=== PATIENT | male | born 1995 | race Two or more races ===

== ENCOUNTER 2022-09-01 00:01 | Emergency (ER) | payer MEDICAID, OTHER ==
[~2022-09-01] VITALS: Ht 172.7 cm; Wt 90.7 kg
--- NOTE | 2022-09-01 00:20 | NUR ---
TO ER BED 3. [id number] C/O RT ANKLE PAIN WHILE WALKING, DENIES LOC, +HEADACHE. PT IS ALERT AND ORIENTED. RR EVEN AND NON LABORED. NO EXTREMITY WEAKNESS. CONNECTED TO MONITOR.
[2022-09-01] MEDS ORDERED: KETOROLAC TROMETHAMINE INJ 60 MG/2 ML VIAL IM ONE ×2 (00:21→00:30)
--- NOTE | 2022-09-01 00:24 | NUR ---
XRAY AT BEDSIDE
[2022-09-01] MEDS ORDERED: KETO10TA2 PO (02:31)
--- NOTE | 2022-09-01 02:57 | NUR ---
Patient discharged to home in stable condition. Written and verbal after care instructions given. Patient verbalizes understanding of instruction.
[2022-09-01 04:12] VITALS: BP 158/57
== END 2022-09-01 04:12 | disposition home or self-care (01) ==
LOC: ER 00:03
DX: S93.401A Sprain of unspecified ligament of right ankle, initial encounter (principal); X50.1XXA Overexertion from prolonged static or awkward postures, initial encounter; Y93.89 Activity, other specified; Y92.89 Other specified places as the place of occurrence of the external cause; Y99.8 Other external cause status
CPT/HCPCS: 99284; 96372; 73610; 73630; J1885

== ENCOUNTER 2022-09-01 06:13 | Emergency (ER) | payer MEDICAID ==
[~2022-09-01] VITALS: Ht 172.7 cm; Wt 90.7 kg
[~2022-09-01 06:13] MED LIST: KETO10TA2 PO
--- NOTE | 2022-09-01 06:45 | NUR ---
COVID ANTIGEN SWAB COLLECTED AND SENT TO LAB
--- NOTE | 2022-09-01 06:45 | NUR ---
URINE COLLECTED AND SENT TO LAB
[2022-09-01 07:05] LABS: BILIRUBIN,URINE 1+ (NEGATIVE); COLOR,URINE YELLOW (YELLOW); LEUKOCYTE ESTERASE ,URINE NEGATIVE (NEGATIVE); NITRITE, URINE NEGATIVE (NEGATIVE); PROTEIN,URINE 2+ mg/dl (NEGATIVE); UGLUCOSE NEGATIVE (NEGATIVE); UROBILINOGEN,URINE 0.2 EU/dL (0.2)
[2022-09-01 07:28] LABS: BACTERIA,URINE Few /HPF (None Seen)
[2022-09-01 07:29] LABS: MUCUS,URINE Many /LPF (None Seen); SQUAMOUS EPITHELIAL CELL,UR Moderate /HPF (None Seen)
[2022-09-01 07:36] LABS: BASOPHILS % (AUTO) 0.3 % (0.0-2.0); EOSINOPHILS % (AUTO) 3.9 % (0.0-6.0); HEMATOCRIT 45 % (39-51); HEMOGLOBIN 14.6 g/dL (13.5-17.5); LYMPHOCYTES # (AUTO) 2.4 K/uL (0.8-4.8); LYMPHOCYTES % (AUTO) 20.6 % (20.0-44.0); MEAN CORPUSCULAR HGB CONC 32 g/dl (31.0-36.0); MEAN CORPUSCULAR VOLUME 91 fL (80-96); MONOCYTES # (AUTO) 1.3 K/uL (0.1-1.30); MONOCYTES % (AUTO) 10.8 % (2.0-12.0); NEUTROPHILS # (AUTO) 7.5 K/uL (1.8-8.9); NEUTROPHILS % (AUTO) 64.4 % (43.0-81.0); PLATELET COUNT (AUTO) 460 K/uL (150-450); RED BLOOD CELL COUNT(AUTO) 4.95 MIL/uL (4.5-6.0); WHITE BLOOD COUNT (AUTO) 11.7 K/uL (4.3-11.0)
[2022-09-01 07:48] LABS: CALCIUM, SERUM 8.8 mg/dL (8.5-10.1); CARBON DIOXIDE 22 mmol/L (21-32); CHLORIDE 104 mmol/L (98-107); GLUCOSE 113 mg/dL (74-106); POTASSIUM 3.7 mmol/L (3.5-5.1); SODIUM SERUM 136 mmol/L (136-145); UREA NITROGEN, BLOOD 16 mg/dL (7-18)
[2022-09-01 08:01] LABS: ALANINE AMINOTRANSFERASE 80 U/L (12-78); ALBUMIN 3.8 g/dL (3.4-5.0); ALKALINE PHOSPHATASE 134 U/L (46-116); ASPARTATE AMINOTRANSFERASE 27 U/L (15-37); BILIRUBIN,TOTAL 0.4 mg/dL (0.2-1.0); TOTAL PROTEIN, SERUM 7.6 g/dL (6.4-8.2)
[2022-09-01 08:05] LABS: ALCOHOL, BLOOD < 3 mg/dL (0-0)
[2022-09-01 08:16] LABS: BILIRUBIN,DIRECT 0.1 mg/dL (0.0-0.2)
--- NOTE | 2022-09-01 08:55 | NUR ---
Patient came in to the er c/o +SI "i want to run through traffic". On room air, breathing evenly and unlabored. Kept comfortable, will continue to monitor accordingly.
--- NOTE | 2022-09-01 10:39 | NUR ---
[facility] [phone] Accepting pt to room #18-Dr. Garcia-Nursing Director Of Orthopedics [place] [phone] for report Will call back with ETA
[2022-09-01 11:15] VITALS: BP 125/77
--- NOTE | 2022-09-01 11:17 | NUR ---
patient picked up by driver helper going to [facility] in no distress. All patient's belongings sent with patient.
== END 2022-09-01 11:16 ==
LOC: ER 06:14
DX: R45.851 Suicidal ideations (principal); Z20.822 Contact with and (suspected) exposure to COVID-19; F32.A Depression, unspecified; Z68.30 Body mass index [BMI] 30.0-30.9, adult
CPT/HCPCS: 99285; 85025; 80048; 87086; 80076; 81001; 36415; 87426; 80143; 80320; 80307; C9803; G0480